=== PATIENT | female | born 1960 | race Hispanic/Latino ===

== ENCOUNTER 2019-06-19 17:49 | Emergency (ER) | payer OTHER ==
--- NOTE | 2019-06-19 19:02 | RAD REPORT ---
EXAM DESCRIPTION: RAD - Ankle Left 3 View - 06/19/2019 6:51 pm CLINICAL HISTORY: PAIN COMPARISON: No comparisons FINDINGS: Mild soft tissue swelling is seen along the lateral aspect of the ankle. Small calcaneal s purs present. No acute fracture seen.
--- NOTE | 2019-06-19 19:04 | RAD REPORT ---
EXAM DESCRIPTION: RAD - Hand Right 3 View - 06/19/2019 6:54 pm CLINICAL HISTORY: PAIN COMPARISON: Hand Right 3 View dated 08/15/2014 FINDINGS: No acute fracture or dislocation evident.
--- NOTE | 2019-06-19 19:16 | ER ---
Nurse's Notes [facility] Name: Maycol Grady Age: 58 yrs Sex: Female : 1960 Arrival Date: 06/19/2019 Time: 17:54 Bed 7 Private MD: Gurpreet Lloyd E Diagnosis: Sprain of ankle;Contusion of right hand Presentation: 06/19 18:11 Presenting complaint: Patient states: "I fell onto my knees coming out of my house". Pt aa5 c/o pain to right hand, right knee, right shoulder, and left foot. Denies LOC. Pt states "I hit my glasses on the concrete". Transition of care: patient was not received from another setting of care. Onset of symptoms was June 19, 2019. Risk Assessment: Do you want to hurt yourself or someone else? Patient reports no desire to harm self or others. Initial Sepsis Screen: Does the patient meet any 2 criteria? No. Patient's initial sepsis screen is negative. Does the patient have a suspected source of infection? No. Patient's initial sepsis screen is negative. Care prior to arrival: None. 18:11 Method Of Arrival: Ambulatory aa5 18:11 Acuity: BELLA 4 aa5 Historical: - Allergies: 18:13 Codeine; aa5 - PMHx: 18:15 Thyroid problem; aa5 - PSHx: 18:13 Cholecystectomy; aa5 - Immunization history:: Flu vaccine is not up to date. - Social history:: Smoking status: Patient/guardian denies using tobacco. - Ebola Screening: : No symptoms or risks identified at this time. Screenin:35 Abuse screen: Denies threats or abuse. Denies injuries from another. Nutritional sv screening: No deficits noted. Tuberculosis screening: No symptoms or risk factors identified. Fall Risk None identified. Assessment: 18:35 General: Appears in no apparent distress. uncomfortable, well developed, Behavior is sv calm, cooperative, appropriate for age. Pain: Complains of pain in right hand and heel of right hand and left leg and anterior aspect of left ankle and left lateral ankle Pain currently is 10 out of 10 on a pain scale. Neuro: Level of Consciousness is awake, alert, obeys commands, Oriented to person, place, time, situation, Moves all extremities. Respiratory: Respiratory effort is even, unlabored, Respiratory pattern is regular, symmetrical. Derm: Skin is pink, warm \\T\\ dry. 19:35 General: Appears in no apparent distress. Behavior is calm, cooperative, appropriate ea for age. Pain: Complains of pain in right hand and left lateral ankle. Neuro: Level of Consciousness is awake, alert, obeys commands, Oriented to person, place, time, situation. Respiratory: Airway is patent Respiratory effort is even, unlabored, Respiratory pattern is regular, symmetrical. Derm: Skin is pink, warm \\T\\ dry. 19:42 Reassessment: Patient and/or family updated on plan of care and expected duration. Pain ea level reassessed. Patient is alert, oriented x 3, equal unlabored respirations, skin warm/dry/pink. Discharge instruction given to patient, verbalized the understanding of instruction. Pt left ED via wheelchair accompanied by family. Pt tolerating well. Vital Signs: 18:13 BP 157 / 82; Pulse 78; Resp 16 S; Temp 98.5(TE); Pulse Ox 100% on R/A; Weight 65.77 kg aa5 (R); Height 5 ft. 5 in. (165.10 cm) (R); Pain 10/10; 18:13 Body Mass Index 24.13 (65.77 kg, 165.10 cm) aa5 ED Course: 17:54 Patient arrived in ED. mr 17:54 Gurpreet Lloyd MD is Private Physician. mr 18:12 Triage completed. aa5 18:12 Arm band placed on. aa5 18:19 Jonas Thibodeaux MD is Attending Physician. tw4 18:23 Sunita Bonds RN is Primary Nurse. sv 18:33 X-ray(s) taken. sv 18:35 Patient has correct armband on for positive identification. Bed in low position. Call sv light in reach. Side rails up X2. 18:52 Hand Right 3 View XRAY In Process Unspecified. EDMS 18:52 Ankle Left 3 View In Process Unspecified. EDMS 19:12 Gurpreet Lloyd MD is Referral Physician. tw4 19:23 Primary Nurse role handed off by Sunita Bonds, IRAM sv 19:35 Pooja Javier RN is Primary Nurse. ea 19:41 No provider procedures requiring assistance completed. Patient did not have IV access ea during this emergency room visit. Administered Medications: 19:35 Drug: Motrin 600 mg Route: PO; ea 19:40 Follow up: Response: Medication administered at discharge. ea Outcome: 19:12 Discharge ordered by . tw4 19:43 Discharged to home via wheelchair, with family. ea 19:43 Condition: stable 19:43 Discharge instructions given to patient, Instructed on discharge instructions, follow up and referral plans. medication usage, Demonstrated understanding of instructions, follow-up care, medications, Prescriptions given X 1. 19:43 Patient left the ED. ea Signatures: Dispatcher [employer] EDSunita Campbell, RN Sonya Corley mr Cat, Cathleen, RN RN aa5 Pooja Javier RN Jonas Menideta ea, MD MD tw4 Corrections: (The following items were deleted from the chart) 18:15 18:13 PMHx: None; michelle aa5
--- NOTE | 2019-06-19 19:16 | EDPHYS ---
Physician Documentation [facility] Name: Maycol Grady Age: 58 yrs Sex: Female : 1960 Arrival Date: 06/19/2019 Time: 17:54 Bed 7 Private MD: Gurpreet Lloyd E ED Physician Jonas Thibodeaux HPI: 06/19 18:54 This 58 yrs old Female presents to ER via Ambulatory with complaints of Fall tw4 Injury. 18:54 Details of fall: The patient fell from an upright position, while standing. Onset: The tw4 symptoms/episode began/occurred just prior to arrival. Associated injuries: The patient sustained no obvious injury. Severity of symptoms: At their worst the symptoms were mild, in the emergency department the symptoms are unchanged. The patient has not experienced similar symptoms in the past. Historical: - Allergies: 18:13 Codeine; aa5 - PMHx: 18:15 Thyroid problem; aa5 - PSHx: 18:13 Cholecystectomy; aa5 - Immunization history:: Flu vaccine is not up to date. - Social history:: Smoking status: Patient/guardian denies using tobacco. - Ebola Screening: : No symptoms or risks identified at this time. ROS: 18:54 MS/extremity: Positive for injury or acute deformity, decreased range of motion, pain. tw4 Exam: 18:54 Musculoskeletal/extremity: Extremities: noted in the left lateral ankle and anterior tw4 aspect of left ankle: noted in the heel of right hand and Right first web space: pain, ROM: no acute changes, Circulation is intact in all extremities. Sensation intact. Vital Signs: 18:13 BP 157 / 82; Pulse 78; Resp 16 S; Temp 98.5(TE); Pulse Ox 100% on R/A; Weight 65.77 kg aa5 (R); Height 5 ft. 5 in. (165.10 cm) (R); Pain 10/10; 18:13 Body Mass Index 24.13 (65.77 kg, 165.10 cm) aa5 MDM: 18:19 Patient medically screened. tw4 19:11 Differential diagnosis: abrasion, contusion. Data reviewed: vital signs, nurses notes. tw4 Data interpreted: Pulse oximetry: Interpretation: normal. Counseling: I had a detailed discussion with the patient and/or guardian regarding: the historical points, exam findings, and any diagnostic results supporting the discharge/admit diagnosis. Special discussion: I discussed with the patient/guardian in detail that at this point there is no indication for admission to the hospital. It is understood, however, that if the symptoms persist or worsen the patient needs to return immediately for re-evaluation. 06/19 18:20 Order name: Hand Right 3 View XRAY tw4 06/19 18:50 Order name: Ankle Left 3 View EDMA 06/19 19:30 Order name: Mario Wrap; Complete Time: 19:39 ea Administered Medications: 19:35 Drug: Motrin 600 mg Route: PO; ea 19:40 Follow up: Response: Medication administered at discharge. Disposition: 06/20 05:55 Chart complete. tw4 Disposition: 06/19/19 19:12 Discharged to Home. Impression: Sprain of ankle, Contusion of right hand. - Condition is Stable. - Discharge Instructions: Ankle Sprain, Hand Contusion, Ankle Sprain, [id number]. - Prescriptions for Ibuprofen 800 mg Oral Tablet - take 1 tablet by ORAL route every 8 hours As needed take with food; 30 tablet. - Work release form, Medication Reconciliation Form, Thank You Letter, Antibiotic Education, Prescription Opioid Use form. - Follow up: Private Physician; When: Upon discharge from the Emergency Department; Reason: Recheck today's complaints, Continuance of care. Follow up: Gurpreet Lloyd MD; When: Upon discharge from the Emergency Department; Reason: Recheck today's complaints, Continuance of care. - Problem is new. - Symptoms have improved. Signatures: Dispatcher [employer] [facility] Cathleen Cat RN Pooja Goyal RN RN ea Wadley, Terrence, MD MD tw4 Corrections: (The following items were deleted from the chart) 06/19 18:15 18:13 PMHx: None; michelle martinez 18:48 18:21 Foot Left 2 View+RAD.RAD.BRZ ordered. [facility] 19:43 19:12 06/19/2019 19:12 Discharged to Home. Impression: Sprain of ankle; Contusion of ea right hand. Condition is Stable. Forms are Medication Reconciliation Form, Thank You Letter, Antibiotic Education, Prescription Opioid Use. Follow up: Private Physician; When: Upon discharge from the Emergency Department; Reason: Recheck today's complaints, Continuance of care. Follow up: Gurpreet Lloyd; When: Upon discharge from the Emergency Department; Reason: Recheck today's complaints, Continuance of care. Problem is new. Symptoms have improved. tw4
[2019-06-19] MEDS ORDERED: IBUPROFEN 200 MG TAB PO ONE (19:35)
[2019-06-19] MEDS ORDERED: IBUPROFEN 400 MG TAB ONE (19:35)
[2019-06-19 23:52] VITALS: BP 157/82; TEMP 98.5; O2SAT 100
== END 2019-06-19 19:43 | disposition home or self-care (01) ==
LOC: ER 17:49
DX: S93.402A Sprain of unspecified ligament of left ankle, initial encounter (principal); S60.221A Contusion of right hand, initial encounter; W19.XXXA Unspecified fall, initial encounter; Y93.89 Activity, other specified; Y92.9 Unspecified place or not applicable; Z88.5 Allergy status to narcotic agent
CPT/HCPCS: 99283